=== PATIENT | male | born 1965 | race Caucasian/White ===

== ENCOUNTER 2018-02-03 11:01 | Emergency (ER) | payer OTHER ==
[2018-02-03 12:54] LABS: URINE BLOOD (Dip) POC 1+ (NEGATIVE); URINE GLUCOSE (Dip) POC Negative (NEGATIVE); URINE KETONES (Dip) POC Negative (NEGATIVE); URINE LEUKOCYTE EST (Dip) POC Negative (NEGATIVE); URINE NITRITE (Dip) POC Negative (NEGATIVE); URINE TOTAL PROTEIN POC 2+ (NEGATIVE)
== END 2018-02-03 14:23 | disposition home or self-care (01) ==
LOC: FTE 11:01
DX: R30.0 Dysuria (principal)
CPT/HCPCS: 81003; 87086; 99283

== ENCOUNTER 2018-05-16 09:42 | Emergency (ER) | payer OTHER ==
[2018-05-16] MEDS: DEXAMETHASONE 10 MG/ML 1 ML INJ IM (11:50)
[2018-05-16] MEDS: morphine LIQ (10 MG/5 ML) CUP PO (11:50)
== END 2018-05-16 12:20 | disposition home or self-care (01) ==
LOC: FTE 09:42
DX: M54.5 Low back pain (principal)
CPT/HCPCS: 96372; 99284-25

== ENCOUNTER 2018-05-18 12:49 | Inpatient (IN) | payer OTHER ==
[2018-05-18] MEDS: KETOROLAC 60 MG INJ IM (13:44)
[2018-05-18 17:42] LABS: WHITE BLOOD COUNT 12.5 10^3/ul (4.8-10.8)
[2018-05-18 17:42] LABS: ADD MAN DIFF? NO; BASOPHILS % 0.3 % (0.0-2.0); EOSINOPHILS # 0.3 10^3/ul (0.0-0.5); HEMATOCRIT 41.6 % (42.0-52.0); HEMOGLOBIN 13.9 g/dl (14.0-18.0); LYMPHOCYTES % 23.7 % (15.0-51.0); MEAN CORPUSCULAR HEMOGLOBIN 29.6 pg (29.0-33.0); MEAN CORPUSCULAR HGB CONC 33.4 g/dl (32.0-37.0); MEAN CORPUSCULAR VOLUME 88.7 fl (82.0-101.0); MEAN PLATELET VOLUME 10.7 fl (7.4-10.4); NEUTROPHIL # 8.2 10^3/ul (1.6-7.5); NEUTROPHILS % 65.6 % (39.0-77.0); PLATELET COUNT 133 10^3/UL (140-415); POSITIVE DIFF @See below; RED BLOOD COUNT 4.69 10^6/ul (4.70-6.10); RED CELL DISTRIBUTION WIDTH 13.7 % (11.5-14.5)
[2018-05-18] MEDS: ONDANSETRON 4 MG INJ IV (17:45)
[2018-05-18] MEDS: morphine 4 MG/ML VIAL IV (17:45)
[2018-05-18 17:57] LABS: INR 1.31; PROTIME 16.5 Sec (11.9-14.9); PT RATIO 1.3
[2018-05-18 17:58] LABS: PARTIAL THROMBOPLASTIN TIME 39.3 Sec (23.0-35.0)
[2018-05-18 18:01] LABS: ALANINE AMINOTRANSFERASE 26 IU/L (13-69); ALBUMIN 4.2 g/dl (3.3-4.9); ALBUMIN/GLOBULIN RATIO 1.31; ALKALINE PHOSPHATASE 134 IU/L (42-121); ANION GAP 11 (5-13); ASPARTATE AMINO TRANSFERASE 26 IU/L (15-46); BILIRUBIN,INDIRECT 0.5 mg/dl (0-1.1); BILIRUBIN,TOTAL 0.5 mg/dl (0.2-1.3); BLOOD UREA NITROGEN 23 mg/dl (7-20); CALCIUM 8.9 mg/dl (8.4-10.2); CARBON DIOXIDE 26 mmol/L (21-31); CHLORIDE 104 mmol/L (97-110); CREATINE KINASE 128 IU/L (23-200); CREATININE 0.87 mg/dl (0.61-1.24); Estimated GFR > 60 mL/min (>60); GLUCOSE 95 mg/dl (70-220); POTASSIUM 3.7 mmol/L (3.5-5.1); SODIUM 141 mmol/L (135-144); TOTAL PROTEIN 7.4 g/dl (6.1-8.1)
[2018-05-18 18:13] LABS: B-TYPE NATRIURETIC PEPTIDE 495 PG/ML (0-125); CK INDEX 0.5; CK-MB 0.58 ng/ml (0.0-2.4); TROPONIN-I < 0.012 ng/ml (0.000-0.120)
[2018-05-18] MEDS ORDERED: ACETAMINOPHEN 325 MG TAB PO (18:30)
[2018-05-18] MEDS ORDERED: ONDANSETRON 4 MG INJ IV (18:30)
[2018-05-18] MEDS: SOD CHLORIDE 0.9% 100 ML (18:39)
[2018-05-18] MEDS: IOHEXOL 300MG/ML 150 ML BTL (18:40)
[2018-05-18] MEDS ORDERED: IBUPROFEN 600 MG TAB PO (19:30)
[2018-05-18] MEDS ORDERED: NACL 0.9% 3 ML SYG IV (19:30)
[2018-05-18] MEDS: HYDROCODONE/APAP (5/325) TAB PO (22:34)
[2018-05-19 05:50] LABS: ADD MAN DIFF? NO
[2018-05-19 06:10] LABS: WHITE BLOOD COUNT 9.3 10^3/ul (4.8-10.8)
[2018-05-19 06:10] LABS: BASOPHILS % 0.3 % (0.0-2.0); EOSINOPHILS # 0.3 10^3/ul (0.0-0.5); EOSINOPHILS % 3.7 % (0.0-7.0); HEMATOCRIT 39.7 % (42.0-52.0); HEMOGLOBIN 13.1 g/dl (14.0-18.0); LYMPHOCYTES # 2.7 10^3/ul (0.8-2.9); MEAN CORPUSCULAR HEMOGLOBIN 29.7 pg (29.0-33.0); MEAN PLATELET VOLUME 11.1 fl (7.4-10.4); MONOCYTE # 0.9 10^3/ul (0.3-0.9); MONOCYTES % 9.6 % (0.0-11.0); NEUTROPHIL # 5.3 10^3/ul (1.6-7.5); NEUTROPHILS % 57.2 % (39.0-77.0); PLATELET COUNT 122 10^3/UL (140-415); POSITIVE DIFF @See below; RED BLOOD COUNT 4.41 10^6/ul (4.70-6.10); RED CELL DISTRIBUTION WIDTH 14.1 % (11.5-14.5)
[2018-05-19 06:12] LABS: HEMOGLOBIN A1C 5.5 % (0-5.9)
[2018-05-19 06:16] LABS: LACTATE DEHYDROGENASE 339 IU/L (313-618)
[2018-05-19 06:23] LABS: ALANINE AMINOTRANSFERASE 25 IU/L (13-69); ALBUMIN 3.5 g/dl (3.3-4.9); ALBUMIN/GLOBULIN RATIO 1.29; ALKALINE PHOSPHATASE 117 IU/L (42-121); ANION GAP 10 (5-13); ASPARTATE AMINO TRANSFERASE 22 IU/L (15-46); BILIRUBIN,INDIRECT 0.6 mg/dl (0-1.1); BILIRUBIN,TOTAL 0.6 mg/dl (0.2-1.3); BLOOD UREA NITROGEN 24 mg/dl (7-20); CALCIUM 8.4 mg/dl (8.4-10.2); CARBON DIOXIDE 26 mmol/L (21-31); CHLORIDE 106 mmol/L (97-110); CREATININE 0.87 mg/dl (0.61-1.24); Estimated GFR > 60 mL/min (>60); GLUCOSE 93 mg/dl (70-220); POTASSIUM 4.2 mmol/L (3.5-5.1); SODIUM 142 mmol/L (135-144); TOTAL PROTEIN 6.2 g/dl (6.1-8.1)
[2018-05-19] MEDS: ENOXAPARIN 30 MG/0.3 ML SYG SC (09:06)
[2018-05-19] MEDS: HYDROCODONE/APAP (5/325) TAB PO ×2 (12:24→22:16)
[2018-05-19] MEDS: IOHEXOL 300MG/ML 150 ML BTL (17:24)
[2018-05-19] MEDS: SOD CHLORIDE 0.9% 100 ML (17:24)
[2018-05-20 03:17] LABS: PROTEIN, TOTAL 6.2 g/dL (6.1-8.1)
[2018-05-20] MEDS: ENOXAPARIN 30 MG/0.3 ML SYG SC (09:50)
[2018-05-20] MEDS: HYDROCODONE/APAP (5/325) TAB PO (09:52)
[2018-05-20 16:21] LABS: ALBUMIN 3.6 g/dL (3.8-4.8); ALPHA-1-GLOBULINS 0.3 g/dL (0.2-0.3); ALPHA-2-GLOBULINS 0.7 g/dL (0.5-0.9); BETA 2 GLOBULINS 0.4 g/dL (0.2-0.5); BETA GLOBULINS 0.5 g/dL (0.4-0.6); GAMMA GLOBULINS 0.8 g/dL (0.8-1.7)
[2018-05-22 13:31] LABS: FREE TESTOSTERONE 31.1 pg/mL (35.0-155.0); TESTOSTERONE, TOTAL 225 ng/dL (250-1100)
== END 2018-05-20 17:25 | disposition home or self-care (01) | DRG 723 ==
LOC: FTE 12:49 → MS1 18:23
DX: C61 Malignant neoplasm of prostate (principal); C79.49 Secondary malignant neoplasm of other parts of nervous system; C79.51 Secondary malignant neoplasm of bone
CPT/HCPCS: 71045; 71260; 72131; 72146; 72148; 74177; 80053; 82550; 82553; 83036; 83615; 83880; 84153; 84154; 84155; 84165; 84403; 84484; 85025; 85610; 85730; 93005; 96374; 96375; 99285-25; G0378